=== PATIENT | male | born 1955 | race Caucasian/White ===

== ENCOUNTER 2016-12-02 07:33 | Day surgery (SDC) | payer OTHER ==
[~2016-12-02 07:33] MED LIST: CANA100T; CIPR500T2 PO; LANTUSP SQ; METF850T PO; PROP20TA24 PO; PROT40TA PO; TRAD5TAB PO
[2016-12-02 08:22] VITALS: BP 131/78; PULSE 69; RESP 16; TEMP 97; O2SAT 98
--- NOTE | 2016-12-02 09:38 | RADRPT ---
EXAM DATE/TIME: 12/02/2016 08:11 [place] COMPARISON: No previous studies available for comparison. INDICATIONS : Cirrhosis of the liver with ascites. MEDICAL HISTORY : Arthritis. Gastrointestinal bleed. Diabetes mellitus type 1. Esophageal varicies. SURGICAL HISTORY : Tonsillectomy. Hemorrhoid and esophageal banding. Fistula. Blood transfusions. ENCOUNTER: Initial ACUITY: 1 week PAIN SCORE: 0/10 LOCATION: Abdomen. AREA EVALUATED: Quadrants. FINDINGS: Imaging of the abdomen and pelvis was performed to evaluate for ascites for possible paracentesis. CONCLUSION: There is no significant ascites. Julio Sanderson MD FACR on December 02, 2016 at 9:36 Board Certified Radiologist. This report was verified electronically.
== END 2016-12-02 08:58 | disposition home or self-care (01) ==
LOC: HRAD 07:33 → HRIP 07:33 → HRAD 08:58
PROVIDERS: ATTEND Internal Medicine Gastroenterology
DX: R18.8 Other ascites (principal); K74.60 Unspecified cirrhosis of liver; E10.9 Type 1 diabetes mellitus without complications; M19.90 Unspecified osteoarthritis, unspecified site
CPT/HCPCS: 76705

== ENCOUNTER 2017-07-25 18:28 | Emergency (ER) | payer OTHER ==
[~2017-07-25] VITALS: Ht 182.9 cm; Wt 115.0 kg
[2017-07-25 18:33] VITALS: BP 145/74; PULSE 109; RESP 16; TEMP 98; O2SAT 100
--- NOTE | 2017-07-25 19:01 | PD ---
HPI Chief Complaint: Musculoskeletal Complaint Time Seen by Provider: 18:42 Travel History International Travel<30 days: No Contact w/Intl Traveler<30days: No Traveled to known affect area: No History of Present Illness HPI 61-year-old male complains of right leg pain. Patient states that the pain started yesterday. Patient states the pain is sharp pain and aching pain localized the posterior aspect of the right thigh. Patient denies any pain radiation. Patient denies any injury to the leg. 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 Patient take Coumadin 12 mg daily. Last INR check was 3-1/2 weeks ago and it was 2.3. Patient denies any new medication. Patient denies any recent antibiotic. PFSH Past Medical History Hx Anticoagulant Therapy: Yes (WARFARIN) Arthritis: Yes Autoimmune Disease: No Cancer: No Cardiovascular Problems: No Chemotherapy: No Diabetes: Yes Diminished Hearing: Yes Endocrine: No GERD: No Genitourinary: No Hiatal Hernia: No Immune Disorder: No Musculoskeletal: No Neurologic: No Psychiatric: No Reproductive: No Respiratory: No Radiation Therapy: No Thyroid Disease: No Ulcer: No Past Surgical History Abdominal Surgery: No AICD: No Arteriovenous Shunt: No Cardiac Surgery: No Ear Surgery: No Endocrine Surgery: No Eye Surgery: No Genitourinary Surgery: No Gynecologic Surgery: No Insulin Pump: No Joint Replacement: No Oral Surgery: Yes (esophageal varicies banding) Pacemaker: No Thoracic Surgery: No Other Surgery: Yes (FISTULA RECTUM, UPPER AND LOWER GI'S) Social History Alcohol Use: No Tobacco Use: No Substance Use: No Allergies-Medications (Allergen,Severity, Reaction): Coded Allergies: propofol (Unverified Allergy, Severe, 07/25/17) INFLAMMED PANCREAS cephalexin (Unverified Allergy, Intermediate, NAUSEA AND VOMITING, 07/25/17 ) 04/14/15: PT UNSURE IF THIS IS ACTUALLY ALLERGY Reported Meds & Prescriptions Reported Meds & Active Scripts Active Reported Victoza Inj (Liraglutide Inj) 18 Mg/3 Ml Pen 0.6 Mg SQ DAILY Propranolol (Propranolol HCl) 20 Mg Tab 20 Mg PO Q12HR Lisinopril 2.5 Mg Tab 2.5 Mg PO DAILY Metformin (Metformin HCl) 850 Mg Tab 850 Mg PO TIDPC Lantus Inj (Insulin Glargine) 100 Unit/Ml Inj Warfarin 10 Mg Tab 10 Mg PO DAILY Review of Systems General / Constitutional: No: Fever Eyes: No: Visual changes HENT: No: Headaches Cardiovascular: No: Chest Pain or Discomfort Respiratory: No: Shortness of Breath Gastrointestinal: No: Abdominal Pain Genitourinary: No: Dysuria Musculoskeletal: Positive: Pain Skin: No Rash Neurologic: No: Weakness Psychiatric: No: Depression Endocrine: No: Polydipsia Hematologic/Lymphatic: No: Easy Bruising Physical Exam Narrative GENERAL: Well-nourished, well-developed patient. SKIN: Focused skin assessment warm/dry. HEAD: Normocephalic. EYES: No scleral icterus. No injection or drainage. NECK: Supple, trachea midline. No JVD or lymphadenopathy. CARDIOVASCULAR: Regular rate and rhythm without murmurs, gallops, or rubs. RESPIRATORY: Breath sounds equal bilaterally. No accessory muscle use. GASTROINTESTINAL: Abdomen soft, non-tender, nondistended. MUSCULOSKELETAL: No cyanosis, or edema. BACK: Nontender without obvious deformity. No CVA tenderness. Patient has ecchymosis with diffuse tenderness over posterior aspect lateral aspect of the right thigh and posterior aspect the right lower leg. Full range of motion of the hip knee and ankle joints. No redness no heat noted. Data Data Last Documented VS Vital Signs Date Time Temp Pulse Resp B/P (MAP) Pulse Ox O2 Delivery O2 Flow Rate FiO2 07/25/17 18:33 98.0 109 16 145/74 (97) 100 Orders Orders Complete Blood Count With Diff (07/25/17 18:51) Basic Metabolic Panel (Bmp) (07/25/17 18:51) Prothrombin Time / Inr (Pt) (07/25/17 18:51) Act Partial Throm Time (Ptt) (07/25/17 18:51) Iv Access Insert/Monitor (07/25/17 18:51) Ecg Monitoring (07/25/17 18:51) Oximetry (07/25/17 18:51) Labs Laboratory Tests Test 07/25/17 19:20 White Blood Count 2.6 TH/MM3 Red Blood Count 3.20 MIL/MM3 Hemoglobin 8.6 GM/DL Hematocrit 25.9 % Mean Corpuscular Volume 80.8 FL Mean Corpuscular Hemoglobin 26.8 PG Mean Corpuscular Hemoglobin Concent 33.2 % Red Cell Distribution Width 15.6 % Platelet Count 47 TH/MM3 Mean Platelet Volume 8.2 FL Neutrophils (%) (Auto) 70.4 % Lymphocytes (%) (Auto) 15.2 % Monocytes (%) (Auto) 11.5 % Eosinophils (%) (Auto) 1.6 % Basophils (%) (Auto) 1.3 % Neutrophils # (Auto) 1.9 TH/MM3 Lymphocytes # (Auto) 0.4 TH/MM3 Monocytes # (Auto) 0.3 TH/MM3 Eosinophils # (Auto) 0.0 TH/MM3 Basophils # (Auto) 0.0 TH/MM3 CBC Comment AUTO DIFF Differential Comment AUTO DIFF CONFIRMED Ovalocytes 1+ Prothrombin Time 42.5 SEC Prothromb Time International Ratio 4.2 RATIO Activated Partial Thromboplast Time 49.1 SEC Blood Urea Nitrogen 27 MG/DL Creatinine 0.97 MG/DL Random Glucose 280 MG/DL Calcium Level 8.0 MG/DL Sodium Level 140 MEQ/L Potassium Level 3.8 MEQ/L Chloride Level 110 MEQ/L Carbon Dioxide Level 22.2 MEQ/L Anion Gap 8 MEQ/L Estimat Glomerular Filtration Rate 79 ML/MIN [facility] Medical Decision Making Medical Screen Exam Complete: Yes Emergency Medical Condition: Yes Interpretation(s) 2019 p.m. CBC WBC 2.6. Hemoglobin 8.6 hematocrit 25.9. Platelets 47. 70 neutrophil. Patient usually has hemoglobin around 11-12. On examination today no active bleeding. Patient does have a large area ecchymosis on right thigh and right leg. No obvious other source of bleeding. Differential Diagnosis Differential diagnosis including ecchymosis, Coumadin toxicity. Narrative Course 61-year-old male with pain and ecchymosis right leg. Patient is on Coumadin. INR today 4.2. Patient has a large area of ecchymosis on her right thigh and right leg. No active bleeding at this point. Patient's asymptomatic now except pain to the right thigh. Patient has not taken his warfarin today. Diagnosis Primary Impression: Coumadin toxicity Qualified Codes: T45.511A - Poisoning by anticoagulants, accidental ( unintentional), initial encounter Patient Instructions: General Instructions Additional Instructions: Stop Coumadin. Hydrocodone for pain. Return in a.m. for recheck for CBC and INR. Return immediately if chest pain shortness breath dizziness or increasing pain and swelling on the right leg. Med/Other Pt SpecificInfo: Prescription(s) given, Med Stopped Scripts Tramadol (Ultram) 50 Mg Tab 50 MG PO Q6H Y for PAIN, #20 TAB 0 Refills Prov: Fernando Tai MD 07/25/17 Disposition: 01 DISCHARGE HOME Condition: Stable Fernando Tai MD Jul 25, 2017 19:01
[2017-07-25] MEDS ORDERED: METF850T PO (19:06)
[2017-07-25] MEDS ORDERED: LANTUS2P SQ (19:06)
[2017-07-25] MEDS ORDERED: PROP20TA3 PO (19:06)
[2017-07-25] MEDS ORDERED: WARF-22 PO (19:06)
[2017-07-25] MEDS ORDERED: LISI2.5T3 PO (19:06)
[2017-07-25] MEDS ORDERED: VICT18IN SQ (19:06)
[2017-07-25 19:31] LABS: AUTOMATED NEUTROPHIL # 1.9 TH/MM3 (1.8-7.7); BASOPHIL % 1.3 % (0.0-2.0); EOSINOPHIL % 1.6 % (0.0-4.0); HEMATOCRIT 25.9 % (39.0-51.0); HEMOGLOBIN 8.6 GM/DL (13.0-17.0); LYMPH % 15.2 % (9.0-44.0); LYMPHOCYTE # 0.4 TH/MM3 (1.0-4.8); MEAN CELL VOLUME 80.8 FL (80.0-100.0); MEAN CORPUSCULAR HEMOGLOBIN 26.8 PG (27.0-34.0); MEAN CORPUSCULAR HGB CONC 33.2 % (32.0-36.0); MEAN PLATELET VOLUME 8.2 FL (7.0-11.0); MONO % 11.5 % (0.0-8.0); MONOCYTE # 0.3 TH/MM3 (0-0.9); NEUT % 70.4 % (16.0-70.0); PLATELET COUNT 47 TH/MM3 (150-450); RED CELL DISTRIBUTION WIDTH 15.6 % (11.6-17.2); WHITE BLOOD COUNT 2.6 TH/MM3 (4.0-11.0)
[2017-07-25 19:42] LABS: BICARBONATE 22.2 MEQ/L (21.0-32.0)
[2017-07-25 19:43] LABS: INTERNATIONAL NORMALIZED RATIO 4.2 RATIO; PROTHROMBIN TIME - PATIENT 42.5 SEC (9.8-11.6)
[2017-07-25 19:46] LABS: CREATININE 0.97 MG/DL (0.60-1.30)
[2017-07-25 20:15] LABS: OVALOCYTES 1+ (NORMAL)
[2017-07-25] MEDS ORDERED: TRAM50 PO (20:37)
[2017-07-25] MEDS ORDERED: ACETAMINOPHEN/HYDROcodone 325 MG/5 MG TAB PO ONE (20:45)
[2017-07-25 21:04] VITALS: BP 154/86
== END 2017-07-25 21:16 | disposition home or self-care (01) ==
LOC: PHED 18:28
DX: T45.511A Poisoning by anticoagulants, accidental (unintentional), initial encounter (principal); R23.3 Spontaneous ecchymoses; E11.9 Type 2 diabetes mellitus without complications; Z79.01 Long term (current) use of anticoagulants; Z79.4 Long term (current) use of insulin; Z86.718 Personal history of other venous thrombosis and embolism; Z87.39 Personal history of other diseases of the musculoskeletal system and connective tissue
CPT/HCPCS: 80048; 85025; 85610; 85730; 99283

== ENCOUNTER 2017-07-26 11:33 | Inpatient (IN) | payer OTHER ==
[~2017-07-26] VITALS: Ht 182.9 cm; Wt 114.2 kg
[~2017-07-26 11:33] MED LIST changes: -CANA100T; -CIPR500T2 PO; +LANTUS2P SQ; -LANTUSP SQ; +LISI2.5T3 PO; -PROP20TA24 PO; +PROP20TA3 PO; -PROT40TA PO; -TRAD5TAB PO; +TRAM50 PO; +VICT18IN SQ; +WARF-22 PO
[2017-07-26 11:35] VITALS: BP 144/71; PULSE 110; RESP 16; TEMP 97.7; O2SAT 100
--- NOTE | 2017-07-26 11:55 | PD ---
HPI Chief Complaint: Abnormal Results Time Seen by Provider: 11:45 Travel History International Travel<30 days: No Contact w/Intl Traveler<30days: No Traveled to known affect area: No History of Present Illness HPI 62-year-old male presents to the emergency department for recheck of his CBC and INR. Patient was seen yesterday here and was instructed to return today. Patient is complaining of right leg pain with ecchymosis to the right posterior thigh and knee. Patient is on Coumadin for history of splenic vein DVT. Patient has not taken Coumadin since being seen here yesterday. He denies any new or worsening symptoms. No exacerbating or alleviating factors. Moderate severity. Patient also states that he has been having dark and tarry stools for a week with history of needing blood transfusion. PFSH Past Medical History Hx Anticoagulant Therapy: Yes (WARFARIN) Arthritis: Yes Autoimmune Disease: No Cancer: No Cardiovascular Problems: Yes (BLOOD CLOTS) Chemotherapy: No Diabetes: Yes Patient Takes Glucophage: Yes (07/25/17 0900) Diminished Hearing: Yes Endocrine: No Gastrointestinal Disorders: Yes (hemrhoid and esophageal banding, blood in stool) GERD: No Genitourinary: No Hiatal Hernia: No Immune Disorder: No Implanted Vascular Access Dvce: No Musculoskeletal: No Neurologic: No Psychiatric: No Reproductive: No Respiratory: No Radiation Therapy: No Thyroid Disease: No Ulcer: No Tetanus Vaccination: < 5 Years Influenza Vaccination: No Past Surgical History Abdominal Surgery: No AICD: No Arteriovenous Shunt: No Cardiac Surgery: No Ear Surgery: No Endocrine Surgery: No Eye Surgery: No Genitourinary Surgery: No Gynecologic Surgery: No Insulin Pump: No Joint Replacement: No Neurologic Surgery: No Oral Surgery: Yes (esophageal varicies banding) Pacemaker: No Thoracic Surgery: No Tonsillectomy: Yes Other Surgery: Yes (fistula, hemrhoid banding) Social History Alcohol Use: No Tobacco Use: No Substance Use: No Allergies-Medications (Allergen,Severity, Reaction): Coded Allergies: propofol (Unverified Allergy, Severe, 07/26/17) INFLAMMED PANCREAS cephalexin (Unverified Allergy, Intermediate, NAUSEA AND VOMITING, 07/26/17 ) 04/14/15: PT UNSURE IF THIS IS ACTUALLY ALLERGY Reported Meds & Prescriptions Reported Meds & Active Scripts Active Ultram (Tramadol HCl) 50 Mg Tab 50 Mg PO Q6H PRN Reported Victoza Inj (Liraglutide Inj) 18 Mg/3 Ml Pen 0.6 Mg SQ DAILY Propranolol (Propranolol HCl) 20 Mg Tab 20 Mg PO Q12HR Lisinopril 2.5 Mg Tab 2.5 Mg PO DAILY Metformin (Metformin HCl) 850 Mg Tab 850 Mg PO TIDPC Lantus Inj (Insulin Glargine) 100 Unit/Ml Inj Warfarin 10 Mg Tab 10 Mg PO DAILY Review of Systems Except as stated in HPI: all other systems reviewed are Neg Physical Exam Narrative GENERAL: Well-nourished, well-developed male patient, afebrile. SKIN: Focused skin assessment warm/dry. Patient has large ecchymosis noted to the posterior thigh and posterior knee. Tissues are soft, no evidence of compartment syndrome. HEAD: Normocephalic. Atraumatic. EYES: No scleral icterus. No injection or drainage. NECK: Supple, trachea midline. No JVD or lymphadenopathy. CARDIOVASCULAR: Regular rate and rhythm without murmurs, gallops, or rubs. Right pedal pulse is 2+. RESPIRATORY: Breath sounds equal bilaterally. No accessory muscle use. Lungs sounds are clear to auscultation. GASTROINTESTINAL: Abdomen soft, non-tender, nondistended. MUSCULOSKELETAL: No cyanosis, or edema. BACK: Nontender without obvious deformity. No CVA tenderness. RECTAL EXAM: No masses or tenderness, stool is dark and tarry. Hemoccult is positive. This exam was done with RN at bedside. Data Data Last Documented VS Vital Signs Date Time Temp Pulse Resp B/P (MAP) Pulse Ox O2 Delivery O2 Flow Rate FiO2 07/26/17 11:35 97.7 110 16 144/71 (95) 100 Orders Orders Complete Blood Count With Diff (07/26/17 11:52) Prothrombin Time / Inr (Pt) (07/26/17 11:52) Act Partial Throm Time (Ptt) (07/26/17 11:52) Basic Metabolic Panel (Bmp) (07/26/17 12:01) Type And Screen (07/26/17 12:01) Sodium Chlor 0.9% 1000 Ml Inj (Ns 1000 M (07/26/17 13:15) Pantoprazole Inj (Protonix Inj) (07/26/17 13:15) Admit Order (Ed Use Only) (07/26/17 13:33) Labs Laboratory Tests Test 07/26/17 12:00 White Blood Count 3.7 TH/MM3 Red Blood Count 3.07 MIL/MM3 Hemoglobin 8.5 GM/DL Hematocrit 25.1 % Mean Corpuscular Volume 81.7 FL Mean Corpuscular Hemoglobin 27.7 PG Mean Corpuscular Hemoglobin Concent 33.8 % Red Cell Distribution Width 16.7 % Platelet Count 60 TH/MM3 Mean Platelet Volume 8.3 FL Neutrophils (%) (Auto) 80.6 % Lymphocytes (%) (Auto) 12.0 % Monocytes (%) (Auto) 6.4 % Eosinophils (%) (Auto) 0.8 % Basophils (%) (Auto) 0.2 % Neutrophils # (Auto) 3.1 TH/MM3 Lymphocytes # (Auto) 0.4 TH/MM3 Monocytes # (Auto) 0.2 TH/MM3 Eosinophils # (Auto) 0.0 TH/MM3 Basophils # (Auto) 0.0 TH/MM3 CBC Comment DIFF FINAL Differential Comment Prothrombin Time 43.5 SEC Prothromb Time International Ratio 4.3 RATIO Activated Partial Thromboplast Time 53.7 SEC Blood Urea Nitrogen 30 MG/DL Creatinine 0.93 MG/DL Random Glucose 242 MG/DL Calcium Level 8.2 MG/DL Sodium Level 138 MEQ/L Potassium Level 3.8 MEQ/L Chloride Level 107 MEQ/L Carbon Dioxide Level 22.0 MEQ/L Anion Gap 9 MEQ/L Estimat Glomerular Filtration Rate 82 ML/MIN [facility] Medical Decision Making Medical Screen Exam Complete: Yes Emergency Medical Condition: Yes Medical Record Reviewed: Yes Differential Diagnosis Elevated INR versus therapeutic INR versus medical clearance Narrative Course 62-year-old male presents to the emergency department for recheck of his CBC and INR. Patient was seen yesterday and instructed to return. My attending physician, Dr. Tai, was the physician that saw him yesterday. He reevaluated the patient as well. Patient is also complaining of dark and tarry stools for one week. Hemoccult is grossly positive. CBC, BMP, PTT, PT/INR, type and screen are ordered and pending. Dr. Tai resumed care and disposition of patient. HemaPrompt Point of Care Internal Pos. & Neg. Controls: Passed Fecal Specimen Occult Blood: Positive Nohemi Louis Jul 26, 2017 11:55
--- NOTE | 2017-07-26 12:07 | PD ---
Physical Exam Narrative Patient was seen by me and my assistant food service manager. Patient has history of GI bleed that required transfusions in the past. Patient has been follow-up by Dr. Tate and [facility]. Patient states that he was put on iron supplement in the past. Patient states that iron supplement elevated blood sugar in the past. Patient noticed black tarry stool for the past week. Patient denies abdominal pain. Patient denies any fever chills. Patient denies any headache. Patient denies any chest pain or shortness of breath. Patient denies any dizziness. Data Data Last Documented VS Vital Signs Date Time Temp Pulse Resp B/P (MAP) Pulse Ox O2 Delivery O2 Flow Rate FiO2 07/26/17 11:35 97.7 110 16 144/71 (95) 100 Orders Orders Complete Blood Count With Diff (07/26/17 11:52) Prothrombin Time / Inr (Pt) (07/26/17 11:52) Act Partial Throm Time (Ptt) (07/26/17 11:52) Basic Metabolic Panel (Bmp) (07/26/17 12:01) Type And Screen (07/26/17 12:01) Sodium Chlor 0.9% 1000 Ml Inj (Ns 1000 M (07/26/17 13:15) Pantoprazole Inj (Protonix Inj) (07/26/17 13:15) Labs Laboratory Tests Test 07/26/17 12:00 White Blood Count 3.7 TH/MM3 Red Blood Count 3.07 MIL/MM3 Hemoglobin 8.5 GM/DL Hematocrit 25.1 % Mean Corpuscular Volume 81.7 FL Mean Corpuscular Hemoglobin 27.7 PG Mean Corpuscular Hemoglobin Concent 33.8 % Red Cell Distribution Width 16.7 % Platelet Count 60 TH/MM3 Mean Platelet Volume 8.3 FL Neutrophils (%) (Auto) 80.6 % Lymphocytes (%) (Auto) 12.0 % Monocytes (%) (Auto) 6.4 % Eosinophils (%) (Auto) 0.8 % Basophils (%) (Auto) 0.2 % Neutrophils # (Auto) 3.1 TH/MM3 Lymphocytes # (Auto) 0.4 TH/MM3 Monocytes # (Auto) 0.2 TH/MM3 Eosinophils # (Auto) 0.0 TH/MM3 Basophils # (Auto) 0.0 TH/MM3 CBC Comment DIFF FINAL Differential Comment Prothrombin Time 43.5 SEC Prothromb Time International Ratio 4.3 RATIO Activated Partial Thromboplast Time 53.7 SEC Blood Urea Nitrogen 30 MG/DL Creatinine 0.93 MG/DL Random Glucose 242 MG/DL Calcium Level 8.2 MG/DL Sodium Level 138 MEQ/L Potassium Level 3.8 MEQ/L Chloride Level 107 MEQ/L Carbon Dioxide Level 22.0 MEQ/L Anion Gap 9 MEQ/L Estimat Glomerular Filtration Rate 82 ML/MIN MDM Supervised Visit with SG: Yes Narrative Course Normal saline solution 100 cc an hour. Protonix 40 mg IV. Spoke with facing machine operator on-call, Dr. Aragon. Advised admission with GI consultation. Diagnosis Primary Impression: GIB (gastrointestinal bleeding) Qualified Codes: K92.2 - Gastrointestinal hemorrhage, unspecified Additional Impressions: Hypercoagulable state Symptomatic anemia Admitting Information Admitting Physician Requests: Fernando Talbot MD Jul 26, 2017 12:07
[2017-07-26 12:24] LABS: AUTOMATED NEUTROPHIL # 3.1 TH/MM3 (1.8-7.7); BASOPHIL % 0.2 % (0.0-2.0); EOSINOPHIL % 0.8 % (0.0-4.0); HEMATOCRIT 25.1 % (39.0-51.0); HEMOGLOBIN 8.5 GM/DL (13.0-17.0); LYMPHOCYTE # 0.4 TH/MM3 (1.0-4.8); MEAN CELL VOLUME 81.7 FL (80.0-100.0); MEAN CORPUSCULAR HEMOGLOBIN 27.7 PG (27.0-34.0); MEAN CORPUSCULAR HGB CONC 33.8 % (32.0-36.0); MEAN PLATELET VOLUME 8.3 FL (7.0-11.0); MONO % 6.4 % (0.0-8.0); MONOCYTE # 0.2 TH/MM3 (0-0.9); NEUT % 80.6 % (16.0-70.0); RED BLOOD COUNT 3.07 MIL/MM3 (4.50-5.90); RED CELL DISTRIBUTION WIDTH 16.7 % (11.6-17.2); WHITE BLOOD COUNT 3.7 TH/MM3 (4.0-11.0)
[2017-07-26 12:25] LABS: PLATELET COUNT 60 TH/MM3 (150-450)
[2017-07-26 12:31] LABS: CALCIUM 8.2 MG/DL (8.5-10.1)
[2017-07-26 12:34] LABS: INTERNATIONAL NORMALIZED RATIO 4.3 RATIO; PROTHROMBIN TIME - PATIENT 43.5 SEC (9.8-11.6)
[2017-07-26 12:35] LABS: CREATININE 0.93 MG/DL (0.60-1.30)
[2017-07-26] MEDS ORDERED: SODIUM CHLOR 0.9% 1000 ML INJ 1,000 ML IV SCH (13:15)
[2017-07-26] MEDS ORDERED: PANTOPRAZOLE SODIUM 40 MG VIAL IV PUSH ONE (13:15)
[2017-07-26] MEDS ORDERED: PHYTONADIONE 10 MG/ML VIAL SQ ONE (13:45)
[2017-07-26 14:00] VITALS: BP 115/72; PULSE 112; RESP 18; O2SAT 100
[2017-07-26] MEDS: SODIUM CHLOR 0.9% 1000 ML INJ 1,000 ML IV SCH ×2 (14:00→23:47)
[2017-07-26] MEDS: PANTOPRAZOLE SODIUM 40 MG VIAL IV PUSH SCH (14:00)
[2017-07-26] MEDS: traMADol HCL 50 MG TAB PO PRN ×2 (15:58→22:06)
[2017-07-26] MEDS: INSULIN ASPART SUPPLEMENTAL SCALE SQ SCH ×2 (17:15→22:05)
--- NOTE | 2017-07-26 18:08 | HHI.HP ---
HPI Service [facility] Hospitalists Primary Care Physician Alpa Alberto MD Admission Diagnosis GI bleed. Anemia. Hypercoagulation. Chief Complaint: Tarry stools, fatigue, elevated INR Travel History International Travel<30 Days: No Contact w/Intl Traveler <30 Da: No Traveled to Known Affected Are: No History of Present Illness 62-year-old male with history of AVMs, cirrhosis, esophageal varices, diabetes with prior GI bleeds that required transfusions presents to ER for follow-up on visit from yesterday which revealed supratherapeutic INR and hemoglobin around 8.5. Patient reports that he has had outpatient IV iron supplementation by his local senior buyer due to his chronic anemia but over the last 10 days or so has noted dark tarry stools which is unusual for him. He notes that he has had these before and has required EGD with treatment of variceals and AVMs. Patient has been follow-up by Dr. Tate locally and [facility] as well. Patient states that IV iron supplement elevated blood sugar in the past. He has avoided nonsteroidals and has not drank any alcohol in 35 years. He uses Tylenol arthritis for his joint pains but no more than 3 pills per day. Patient denies abdominal pain. Patient denies any fever chills. Patient denies any headache or nausea vomiting. Patient denies any chest pain or shortness of breath. Patient denies any dizziness. Denies any new medications and reports that he has been taking his anticoagulant and other meds as directed. It is noted that he has lost 15 pounds over the last month or so intentionally by changing his dietary intake. His outpatient INR on July 02 was 1.9 and prior to that was 2.2 on June 23. GI was contacted from the ER per discussion with the ER provider and they requested the patient be admitted for at least observation given that he was still having dark tarry stools, supratherapeutic INR and a significant history of GI bleeds as well as chronic thrombocytopenia. Review of Systems Constitutional: COMPLAINS OF: Fatigue, Dizziness Endocrine: DENIES: Heat/cold intolerance, Polydipsia, Polyuria, Polyphagia Eyes: DENIES: Blurred vision, Diplopia, Eye inflammation, Eye pain, Vision loss , Photosensitivity, Double Vision Ears, nose, mouth, throat: DENIES: Tinnitus, Hearing loss, Vertigo, Nasal discharge, Oral lesions, Throat pain, Hoarseness, Ear Pain, Running Nose, Epistaxis, Sinus Pain, Toothache, Odynophagia Respiratory: COMPLAINS OF: Shortness of breath, DENIES: Apneas, Cough, Snoring , Wheezing, Hemoptysis, Sputum production Cardiovascular: COMPLAINS OF: Dyspnea on Exertion, DENIES: Chest pain, Palpitations, Syncope, PND, Lower Extremity Edema, Orthopnea, Claudication Gastrointestinal: COMPLAINS OF: Black stools, GERD, DENIES: Abdominal pain, Bloody stools, BRB per rectum, Constipation, Diarrhea, Nausea, Reflux, Vomiting , Difficulty Swallowing, Anorexia, See HPI Musculoskeletal: COMPLAINS OF: Joint pain, Back pain Integumentary: DENIES: Abnormal pigmentation, Nail changes, Pruritus, Rash Hematologic/lymphatic: COMPLAINS OF: Bruising Immunologic/allergic: DENIES: Eczema, Urticaria Neurologic: COMPLAINS OF: Tremor, DENIES: Abnormal gait, Headache, Localized weakness, Paresthesias, Seizures, Speech Problems, Poor Balance Psychiatric: DENIES: Anxiety, Confusion, Mood changes, Depression, Hallucinations, Agitation, Suicidal Ideation, Homicidal Ideation, Delusions, History of Bipolar, History of Schizophrenia Past Family Social History Past Medical History 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 The March 2017 EGD revealed large greater than 5 mm esophageal varices which were banded, scarring from previous banding procedures, portal hypertensive gastropathy changes, gastric antral vascular ectasia without bleeding. -Multiple colonoscopies with most recent done February 2016 which revealed diverticulosis and medium internal hemorrhoids. -Tonsillectomy and adenoidectomy Reported Medications Active Ultram (Tramadol HCl) 50 Mg Tab 50 Mg PO Q6H PRN Victoza Inj (Liraglutide Inj) 18 Mg/3 Ml Pen 1.8 Mg SQ DAILY Propranolol (Propranolol HCl) 20 Mg p.o. daily Lisinopril 5 Mg PO DAILY Metformin (Metformin HCl) 850 Mg Tab 850 Mg PO TIDPC Lantus Inj (Insulin Glargine) 100 Unit/Ml Inj 60 units subQ twice a day Warfarin 12 Mg PO DAILY Spironolactone 50 mg daily Omeprazole 20 mg daily Furosemide 20 mg 1 tablet daily B12 100 mcg p.o. daily Vitamin D 2000 units daily Ventolin inhaler 2 puffs 4 times daily as needed cough or shortness of breath Allergies: Coded Allergies: propofol (Unverified Allergy, Severe, 07/26/17) INFLAMMED PANCREAS cephalexin (Unverified Allergy, Intermediate, NAUSEA AND VOMITING, 07/26/17 ) 04/14/15: PT UNSURE IF THIS IS ACTUALLY ALLERGY Family History Mother had poorly controlled diabetes and in her 80s Father in his 80s, questionable etiology Social History Lives with his , patient was born and raised locally No tobacco in 20 years but prior to that smoked about 1-1/2 packs per day for 20 years No alcohol in 35 years, but prior to that drank heavily on the weekends only Denies illicit drug use Works as a dry wall installations mechanic locally Physical Exam Vital Signs Vital Signs Date Time Temp Pulse Resp B/P (MAP) Pulse Ox O2 Delivery O2 Flow Rate FiO2 07/26/17 16:58 18 07/26/17 14:50 07/26/17 14:00 112 18 115/72 (86) 100 Room Air 07/26/17 11:35 97.7 110 16 144/71 (95) 100 Physical Exam GENERAL: This is a well-nourished, well-developed patient, in no apparent distress. Alert and oriented. Pleasant. SKIN: A few ecchymotic lesions on the forearms. Xerotic. HEAD: Atraumatic. Normocephalic. No temporal or scalp tenderness. EYES: Pupils equal round and reactive. Extraocular motions intact. No scleral icterus. No injection or drainage. ENT: Nose without bleeding, purulent drainage or septal hematoma. Throat without erythema, tonsillar hypertrophy or exudate. Uvula midline. Airway patent. NECK: Trachea midline. No JVD or lymphadenopathy. Supple, nontender, no meningeal signs. CARDIOVASCULAR: Regular rate and rhythm without murmurs, gallops, or rubs. RESPIRATORY: Clear to auscultation. Breath sounds equal bilaterally. No wheezes , rales, or rhonchi. GASTROINTESTINAL: Abdomen soft, non-tender, mildly distended. No hepato- splenomegaly, or palpable masses. No guarding. Bowel sounds normal. MUSCULOSKELETAL: Extremities without clubbing, cyanosis. 1+ edema around the ankles. No joint tenderness, effusion, or edema noted. No calf tenderness. NEUROLOGICAL: Awake and alert. Cranial nerves II through XII intact. Motor and sensory grossly within normal limits. Five out of 5 muscle strength in all muscle groups. Normal speech. Laboratory Laboratory Tests Test 07/26/17 12:00 White Blood Count 3.7 Red Blood Count 3.07 Hemoglobin 8.5 Hematocrit 25.1 Mean Corpuscular Volume 81.7 Mean Corpuscular Hemoglobin 27.7 Mean Corpuscular Hemoglobin Concent 33.8 Red Cell Distribution Width 16.7 Platelet Count 60 Mean Platelet Volume 8.3 Neutrophils (%) (Auto) 80.6 Lymphocytes (%) (Auto) 12.0 Monocytes (%) (Auto) 6.4 Eosinophils (%) (Auto) 0.8 Basophils (%) (Auto) 0.2 Neutrophils # (Auto) 3.1 Lymphocytes # (Auto) 0.4 Monocytes # (Auto) 0.2 Eosinophils # (Auto) 0.0 Basophils # (Auto) 0.0 CBC Comment DIFF FINAL Differential Comment Prothrombin Time 43.5 Prothromb Time International Ratio 4.3 Activated Partial Thromboplast Time 53.7 Blood Urea Nitrogen 30 Creatinine 0.93 Random Glucose 242 Calcium Level 8.2 Sodium Level 138 Potassium Level 3.8 Chloride Level 107 Carbon Dioxide Level 22.0 Anion Gap 9 Estimat Glomerular Filtration Rate 82 Result Diagram: 07/26/17 1200 07/26/17 1200 Caprini VTE Risk Assessment Caprini VTE Risk Assessment: Mod/High Risk (score >= 2) VTE Pharm Contraindication: Coagulopathy,INR elevated Caprini Risk Assessment Model Point Value = 1 Point Value = 2 Point Value = 3 Point Value = 5 Age 41-60 Minor surgery BMI > 25 kg/m2 Swollen legs Varicose veins or History of unexplained or recurrent spontaneous Oral contraceptives or hormone replacement Sepsis (< 1 month) Serious lung disease, including pneumonia (< 1 month) Abnormal pulmonary function Acute myocardial infarction Congestive heart failure (< 1 month) History of inflammatory bowel disease Medical patient at bed rest Age 61-74 Arthroscopic surgery Major open surgery (> 45 min) Laparoscopic surgery (> 45 min) Malignancy Confined to bed (> 72 hours) Immobilizing plaster cast Central venous access Age >= 75 History of VTE Family history of VTE Factor V Leiden Prothrombin [id number] Lupus anticoagulant Anticardiolipin antibodies Elevated serum homocysteine Heparin-induced thrombocytopenia Other congenital or acquired thrombophilia Stroke (< 1 month) Elective arthroplasty Hip, pelvis, or leg fracture Acute spinal cord injury (< 1 month) Prophylaxis Regimen Total Risk Factor Score Risk Level Prophylaxis Regimen 0-1 Low Early ambulation 2 Moderate Order ONE of the following: *Sequential Compression Device (SCD) *Heparin 5000 units SQ BID 3-4 Higher Order ONE of the following medications: *Heparin 5000 units SQ TID *Enoxaparin/Lovenox 40 mg SQ daily (WT < 150 kg, CrCl > 30 mL/min) *Enoxaparin/Lovenox 30 mg SQ daily (WT < 150 kg, CrCl > 10-29 mL/min) *Enoxaparin/Lovenox 30 mg SQ BID (WT < 150 kg, CrCl > 30 mL/min) AND/OR *Sequential Compression Device (SCD) 5 or more Highest Order ONE of the following medications: *Heparin 5000 units SQ TID (Preferred with Epidurals) *Enoxaparin/Lovenox 40 mg SQ daily (WT < 150 kg, CrCl > 30 mL/min) *Enoxaparin/Lovenox 30 mg SQ daily (WT < 150 kg, CrCl > 10-29 mL/min) *Enoxaparin/Lovenox 30 mg SQ BID (WT < 150 kg, CrCl > 30 mL/min) AND *Sequential Compression Device (SCD) Assessment and Plan Problem List: (1) GIB (gastrointestinal bleeding) ICD Codes: K92.2 - Gastrointestinal hemorrhage, unspecified Status: Acute Plan: Recurrent issue in patient with known AVMs and varices. We will have GI see patient. Monitor hemoglobin and vital signs. Hemoglobin is stable with previous evaluation. He has been given vitamin K which hopefully will help but may not be as effective given his liver status. Patient could conceivably be discharged home tomorrow for outpatient workup if vital signs and hemoglobin remained stable. GI requested patient be placed in hospital at least overnight. (2) Symptomatic anemia ICD Codes: D64.9 - Anemia, unspecified Status: Acute Plan: We will continue to monitor. Vitals are stable. Hemoglobin has remained stable. 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 (3) Coagulopathy ICD Codes: D68.9 - Coagulation defect, unspecified Status: Acute Plan: Likely in part iatrogenic as well as due to his liver insufficiency. Has been given vitamin K as above. Will monitor INR. (4) Diabetes mellitus type 2, insulin dependent ICD Codes: E11.9 - Type 2 diabetes mellitus without complications; Z79.4 - [facility] (current) use of insulin Status: Chronic Plan: Continue insulin but will use lower basal dose. Use sliding scale insulin. Sugars have been improving with his intentional weight loss. (5) HTN (hypertension), benign ICD Codes: I10 - Essential (primary) hypertension Status: Chronic Plan: Good control. Continue medication as blood pressure will allow. 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 Continue outpatient management. Code Status Full Discussed Condition With Patient and ER provider. Problem Qualifiers (1) GIB (gastrointestinal bleeding): Qualified Codes: K92.2 - Gastrointestinal hemorrhage, unspecified Mark Santos MD PhD Jul 26, 2017 18:08
[2017-07-26 18:57] VITALS: BP 133/72; PULSE 109; RESP 18; TEMP 98; O2SAT 97
[2017-07-26 20:00] VITALS: BP 120/69; PULSE 101; RESP 20; TEMP 98.2; O2SAT 96
[2017-07-26] MEDS: INSULIN DETEMIR 100 UNITS/ML VIAL SQ SCH (22:05)
[2017-07-26 22:58] VITALS: PULSE 96
[2017-07-27] VITALS (17 sets, daily range): BP systolic 95–150; BP diastolic 55–94; PULSE 87–95; RESP 16–20; TEMP 96.2–99.1; O2SAT 96–99
[2017-07-27] MEDS: traMADol HCL 50 MG TAB PO PRN ×3 (05:48→18:13)
[2017-07-27 06:57] LABS: MEAN CORPUSCULAR HEMOGLOBIN 27.4 PG (27.0-34.0); MEAN CORPUSCULAR HGB CONC 33.4 % (32.0-36.0); MEAN PLATELET VOLUME 7.6 FL (7.0-11.0); PLATELET COUNT 49 TH/MM3 (150-450); RED BLOOD COUNT 2.34 MIL/MM3 (4.50-5.90); RED CELL DISTRIBUTION WIDTH 16.5 % (11.6-17.2); WHITE BLOOD COUNT 2.2 TH/MM3 (4.0-11.0)
[2017-07-27 07:13] LABS: INTERNATIONAL NORMALIZED RATIO 3.1 RATIO; PROTHROMBIN TIME - PATIENT 31.4 SEC (9.8-11.6)
[2017-07-27 07:25] LABS: HEMOGLOBIN 6.4 GM/DL (13.0-17.0)
[2017-07-27 07:26] LABS: HEMATOCRIT 19.2 % (39.0-51.0)
[2017-07-27] MEDS: INSULIN ASPART SUPPLEMENTAL SCALE SQ SCH ×4 (08:00→21:58)
--- NOTE | 2017-07-27 08:27 | HHI.PR ---
Subjective Remarks Patient report he overall feels well. Is ambulated to the restroom on several occasions. Still becomes fatigued quite easily. Denies chest pain or shortness of breath at rest, but does become a little dyspneic with prolonged exertion. He is agreeable to receiving PRBCs. Has had no bowel movement since yesterday morning. No more tarry stools. Objective Vitals Vital Signs Date Time Temp Pulse Resp B/P (MAP) Pulse Ox O2 Delivery O2 Flow Rate FiO2 07/27/17 04:00 97.6 93 20 117/55 (75) 97 07/27/17 00:00 96.2 90 20 133/94 (107) 98 07/26/17 22:58 96 07/26/17 20:00 98.2 101 20 120/69 (86) 96 07/26/17 18:57 98.0 109 18 133/72 (92) 97 07/26/17 18:57 98.0 109 18 133/72 (92) 97 07/26/17 16:58 18 07/26/17 14:50 07/26/17 14:00 112 18 115/72 (86) 100 Room Air 07/26/17 11:35 97.7 110 16 144/71 (95) 100 GENERAL: No acute distress, alert and oriented. Pleasant. SKIN: Warm and dry. Right lateral and posterior thigh with areas of ecchymosis , left index finger with subungual hematoma. HEAD: Normocephalic. EYES: No scleral icterus. No injection or drainage. NECK: Supple, trachea midline. No JVD or lymphadenopathy. CARDIOVASCULAR: Regular rate and rhythm without murmurs, gallops, or rubs. RESPIRATORY: Breath sounds equal bilaterally. No accessory muscle use. GASTROINTESTINAL: Abdomen soft, non-tender, nondistended. Bowel sounds normal. MUSCULOSKELETAL: No cyanosis, or edema. Moves all extremities well. Right thigh ecchymosis is noted, no evidence of compartment syndrome. BACK: No CVA tenderness. Result Diagram: 07/27/17 0633 07/26/17 1200 Urinary Catheter: No Vascular Central Line Catheter: No A/P Problem List: (1) GIB (gastrointestinal bleeding) ICD Codes: K92.2 - Gastrointestinal hemorrhage, unspecified Status: Acute Plan: Recurrent issue in patient with known AVMs and varices. We will have GI see patient. Monitor hemoglobin and vital signs. Hemoglobin dropped overnight. He has been given vitamin K which helped a bit with INR. We will provide 2 unit FFP and 2 units PRBCs. Patient still appears stable (2) Symptomatic anemia ICD Codes: D64.9 - Anemia, unspecified Status: Acute Plan: We will continue to monitor. Vitals are stable. Hemoglobin dropped a bit overnight. Could be somewhat delusional. 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 Provide packed red cells and 1 unit FFP as noted. (3) Coagulopathy ICD Codes: D68.9 - Coagulation defect, unspecified Status: Acute Plan: Likely in part iatrogenic as well as due to his liver insufficiency. Has been given vitamin K as above. INR improved somewhat but only slowly improving likely associated with liver dysfunction. Provide FFP. (4) Diabetes mellitus type 2, insulin dependent ICD Codes: E11.9 - Type 2 diabetes mellitus without complications; Z79.4 - pain management nurse practitioner (current) use of insulin Status: Chronic Plan: Continue insulin but will use lower basal dose. Use sliding scale insulin. Sugars have been improving with his intentional weight loss. (5) HTN (hypertension), benign ICD Codes: I10 - Essential (primary) hypertension Status: Chronic Plan: Good control. Continue medication as blood pressure will allow. 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 Continue outpatient management. Discharge Planning We will have GI see patient. Hopefully discharge in next 1-2 days depending on his progress and stability of blood counts. Problem Qualifiers (1) GIB (gastrointestinal bleeding): Qualified Codes: K92.2 - Gastrointestinal hemorrhage, unspecified Mark Santos MD PhD Jul 27, 2017 08:27
[2017-07-27] MEDS: SODIUM CHLOR 0.9% 1000 ML INJ 1,000 ML IV SCH ×2 (08:56→18:45)
[2017-07-27] MEDS: INSULIN DETEMIR 100 UNITS/ML VIAL SQ SCH ×2 (08:56→21:57)
[2017-07-27] MEDS ORDERED: VICTOZA 18 MG/3 ML SQ SCH (09:00)
--- NOTE | 2017-07-27 10:42 | MB ---
cc: Alphonse Aragon MD DATE OF CONSULT: REASON FOR CONSULTATION: GI bleeding. HISTORY OF PRESENT ILLNESS: This is a 62-year-old male patient known to our service from previous evaluation. Known history of AV malformation of the colon and small bowel, history of liver cirrhosis complicated by esophageal varices. He is known also to have diabetes mellitus. The patient has history of recurrent GI bleeding, was evaluated by our service and at [facility] in the previous admissions. He had varices banded at [facility] 6 months ago and never went for another repeat endoscopic evaluation after that. He had a colonoscopy done by our service that showed multiple AVM and they were cauterized by argon plasma coagulation successfully. The patient this time presented with large amount of frequent bowel movements described as black tarry in color and was seen in the emergency room where he was found to have melanotic stool by rectal examination, but hemodynamically stable. His labs showed hemoglobin to be low and supratherapeutic INR, so he was admitted for further evaluation. At the current time, the patient is asymptomatic from other point of view. No abdominal pain, nausea, vomiting, hematemesis. No black stools since admission. Denies any rectal pain or perianal discomfort. No history of change in appetite, although he complains of decreasing in weight. REVIEW OF SYSTEMS: All 14 points negative for system review other than the ones mentioned in the history of present illness. PAST MEDICAL HISTORY: AV malformation of the bowel, cirrhosis complicated secondary to LASSITER, complicated by ascites and esophageal varices, history of osteoarthritis, gastroesophageal reflux disease, chronic iron deficiency anemia, obstructive sleep apnea, obesity, pancytopenia, portal hypertension, gastropathy, splenic vein thrombosis requiring , B12 deficiency. PAST SURGICAL HISTORY: The patient had multiple EGDs and colonoscopies. The last EGD was done at [facility] in 03/2017 that showed large esophageal varices and they were banded. No followup endoscopy after that. Previous colonoscopies were done for diverticulosis and for internal hemorrhoid. He had tonsillectomy and adenectomy in the past. MEDICATIONS: Ultram, Victoza, Propranolol, Lisinopril, Metformin, Lantus, Warfarin, Spironolactone, Omeprazole, Furosemide, B12, vitamin D, Ventolin inhaler. ALLERGIES: PROPOFOL. FAMILY HISTORY: Mother had poorly controlled diabetes mellitus. Father from unknown etiology. PSYCHOSOCIAL HISTORY: He lives with his and no history of tobacco use, no alcohol use for the last 35 years. PHYSICAL EXAMINATION: GENERAL: The patient was found to be comfortable, not in distress or in pain, hemodynamically stable with stable vital signs. VITAL SIGNS: Blood pressure 115/72, pulse of 100. Pulse oximeter 100%. HEAD AND NECK: Normocephalic, atraumatic. Pupils equal and reactive to light. NECK: Supple neck. No lymphadenopathy. No thyromegaly. CHEST: Clear to auscultation bilaterally. No crackles or wheezes. HEART: Regular rate and rhythm. No murmurs. ABDOMEN: Soft, nontender, slightly distended, but no hepatosplenomegaly. No palpable masses. EXTREMITIES: Normal pulses. No edema. NEUROLOGIC: Nonfocal. Cranial nerves 2-12 grossly intact. SKIN: No rashes. ASSESSMENT AND PLAN: A 62-year-old male patient who presented with the following problems: 1. Melanotic stools of several day's duration. 2. Anemia with a significant drop in H and H since admission. 3. History of esophageal varices, status post banding in 03/2017 with no followup endoscopy since. 4. History of AV malformation requiring APC coagulation in 2015. 5. Chronic anticoagulation for splenic vein thrombosis with warfarin with supratherapeutic level of INR. 6. Liver cirrhosis secondary to nonalcoholic steatohepatitis. 7. Multiple other comorbid conditions including diabetes mellitus. RECOMMENDATIONS: Will need a blood transfusion for the time being, serial hemoglobin and hematocrit. We need to correct the INR to be below 2 to proceed with upper endoscopy and possible banding in the morning. The procedure was explained to the patient including risks, benefits, and possible complications and he agreed to proceed with the procedure in a.m. Thank you for the consultation. MD NAE Iverson/APRIL , 09:47 AM , 10:41 AM
[2017-07-27] MEDS: PANTOPRAZOLE SODIUM 40 MG VIAL IV PUSH SCH (12:53)
[2017-07-27] MEDS ORDERED: TRAD5TAB PO (19:31)
[2017-07-28] VITALS: BP 139/85; PULSE 90; RESP 18; TEMP 97.9; O2SAT 96
[2017-07-28] MEDS: SODIUM CHLOR 0.9% 1000 ML INJ 1,000 ML IV SCH ×2 (03:20→12:52)
[2017-07-28] MEDS: traMADol HCL 50 MG TAB PO PRN ×2 (04:30→18:25)
--- NOTE | 2017-07-28 06:14 | HHI.PR ---
Subjective Remarks Well overnight. Still some fatigue with exertion but overall feels quite stable. He does note some pain in the right thigh associated with the ecchymosis in that area. He reports he actually feels better after he walks across the room and back. Thigh swelling is stable. Objective Vitals Vital Signs Date Time Temp Pulse Resp B/P (MAP) Pulse Ox O2 Delivery O2 Flow Rate FiO2 07/28/17 00:00 97.9 90 18 139/85 (103) 96 07/27/17 22:45 97.4 92 20 129/78 96 07/27/17 22:20 97.8 89 20 95/57 96 07/27/17 21:15 98.1 87 19 121/58 96 07/27/17 20:54 99.1 94 19 100/59 98 07/27/17 20:00 99.1 94 19 100/59 (73) 98 07/27/17 19:11 18 07/27/17 18:45 97.3 94 18 150/72 96 07/27/17 16:00 98.0 90 18 133/66 (88) 97 07/27/17 15:57 97.5 90 18 127/76 96 07/27/17 15:42 97.5 87 18 118/71 96 07/27/17 15:30 97.5 94 18 131/77 97 07/27/17 13:15 97.0 94 18 137/75 99 07/27/17 13:00 97.8 94 18 122/66 97 07/27/17 12:00 97.8 94 16 122/66 (84) 97 07/27/17 08:00 97.4 95 18 129/61 (83) 97 GENERAL: Sleeping, arouses to voice. No acute distress, alert and oriented. Pleasant. SKIN: Warm and dry. Right lateral and posterior thigh with areas of ecchymosis , left index finger with subungual hematoma-both stable in appearance from previous exam. HEAD: Normocephalic. EYES: No scleral icterus. No injection or drainage. NECK: Supple, trachea midline. No JVD or lymphadenopathy. CARDIOVASCULAR: Regular rate and rhythm without murmurs, gallops, or rubs. RESPIRATORY: Breath sounds equal bilaterally. No accessory muscle use. GASTROINTESTINAL: Abdomen soft, non-tender, mildly distended. Bowel sounds normal. MUSCULOSKELETAL: No cyanosis, or edema. Moves all extremities well. Right thigh ecchymosis as noted, no evidence of compartment syndrome. Tenderness to palpation over the right lateral thigh along the IT band. No definitive mass or hematoma. BACK: No CVA tenderness. Result Diagram: 07/27/17 0633 07/26/17 1200 Urinary Catheter: No Vascular Central Line Catheter: No A/P Problem List: (1) GIB (gastrointestinal bleeding) ICD Codes: K92.2 - Gastrointestinal hemorrhage, unspecified Status: Acute Plan: Recurrent issue in patient with known AVMs and varices. GI has seen the patient and is planning endoscopy. Monitor hemoglobin and vital signs. He has been given vitamin K which helped a bit with INR. He is also been transfused 2 unit FFP and 2 units PRBCs on 07/27/2017. Patient clinically appears stable (2) Symptomatic anemia ICD Codes: D64.9 - Anemia, unspecified Status: Acute Plan: We will continue to monitor. Vitals are stable. 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 Provided packed red cells and 2 unit FFP as noted. Current labs pending. (3) Coagulopathy ICD Codes: D68.9 - Coagulation defect, unspecified Status: Acute Plan: Likely in part iatrogenic as well as due to his liver insufficiency. Has been given vitamin K as above. INR improved somewhat but only slowly improving likely associated with liver dysfunction. Provide FFP. (4) Diabetes mellitus type 2, insulin dependent ICD Codes: E11.9 - Type 2 diabetes mellitus without complications; Z79.4 - exterminator (current) use of insulin Status: Chronic Plan: Continue insulin but will use lower basal dose. Use sliding scale insulin. Sugars have been improving with his intentional weight loss. (5) HTN (hypertension), benign ICD Codes: I10 - Essential (primary) hypertension Status: Chronic Plan: Good control. Continue medication as blood pressure will allow. 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 Continue outpatient management. Discharge Planning GI has seen patient. Hopefully discharge in next 1-2 days depending on his progress and stability of blood counts. Problem Qualifiers (1) GIB (gastrointestinal bleeding): Qualified Codes: K92.2 - Gastrointestinal hemorrhage, unspecified Mark Santos MD PhD Jul 28, 2017 06:14
[2017-07-28 07:10] LABS: AUTOMATED NEUTROPHIL # 1.1 TH/MM3 (1.8-7.7); BASOPHIL % 0.3 % (0.0-2.0); EOSINOPHIL % 1.7 % (0.0-4.0); HEMATOCRIT 22.6 % (39.0-51.0); HEMOGLOBIN 7.3 GM/DL (13.0-17.0); LYMPHOCYTE # 0.3 TH/MM3 (1.0-4.8); MEAN CELL VOLUME 83.7 FL (80.0-100.0); MEAN CORPUSCULAR HEMOGLOBIN 26.8 PG (27.0-34.0); MEAN PLATELET VOLUME 7.8 FL (7.0-11.0); MONO % 13.8 % (0.0-8.0); MONOCYTE # 0.2 TH/MM3 (0-0.9); NEUT % 64.2 % (16.0-70.0); PLATELET COUNT 36 TH/MM3 (150-450); RED BLOOD COUNT 2.71 MIL/MM3 (4.50-5.90); WHITE BLOOD COUNT 1.7 TH/MM3 (4.0-11.0)
[2017-07-28 07:19] LABS: INTERNATIONAL NORMALIZED RATIO 1.4 RATIO; PROTHROMBIN TIME - PATIENT 14.1 SEC (9.8-11.6)
[2017-07-28 07:50] VITALS: BP 114/74; PULSE 83; RESP 20; TEMP 97.1; O2SAT 97
[2017-07-28] MEDS: INSULIN ASPART SUPPLEMENTAL SCALE SQ SCH ×4 (08:00→20:59)
[2017-07-28] MEDS: VICTOZA 18 MG/3 ML SQ SCH (08:09)
[2017-07-28] MEDS: INSULIN DETEMIR 100 UNITS/ML VIAL SQ SCH ×2 (08:10→21:00)
[2017-07-28 09:01] LABS: LYMPHOCYTES 24 % (9-44); MONOCYTES 4 % (0-8); NEUTROPHIL # MANUAL DIFF 1.2 TH/MM3 (1.8-7.7); POLYS (SEG NEUTROPHILS) 70 % (16-70)
[2017-07-28 09:02] LABS: OVALOCYTES 1+ (NORMAL); TEARDROP RBCS 1+ (NORMAL)
--- NOTE | 2017-07-28 11:52 | EKG ---
Date Performed: 07/27/2017 Time Performed: 21:30:25 PTAGE: 62 years EKG: Sinus rhythm RIGHT BUNDLE BRANCH BLOCK ABNORMAL ECG Since the PREVIOUS TRACING , no significant change noted PREVIOUS TRACIN05/24/2015 19.29 DOCTOR: Britt Rayo Interpretating Date/Time 07/28/2017 11:50:04
[2017-07-28] MEDS ORDERED: GLUCAGON 1 MG/ML VIAL OTHER PRN (12:00)
[2017-07-28] MEDS ORDERED: DEXTROSE 50% IN WATER 50 ML VIAL(D50) IV PUSH PRN (12:00)
[2017-07-28 12:16] VITALS: BP 95/61; PULSE 84; RESP 20; TEMP 96.9; O2SAT 96
[2017-07-28] MEDS: PANTOPRAZOLE SODIUM 40 MG VIAL IV PUSH SCH (12:43)
[2017-07-28 15:00] VITALS: BP 122/68; PULSE 115; RESP 20; TEMP 97.8; O2SAT 96
[2017-07-28 15:08] VITALS: BP 114/74; PULSE 80; RESP 20; TEMP 97.1; O2SAT 97
[2017-07-28 20:00] VITALS: BP 131/68; PULSE 94; RESP 22; TEMP 98.3; O2SAT 100
[2017-07-29] VITALS: BP 128/75; PULSE 96; RESP 18; TEMP 98.1; O2SAT 99
[2017-07-29] MEDS: traMADol HCL 50 MG TAB PO PRN (00:58)
[2017-07-29] MEDS: SODIUM CHLOR 0.9% 1000 ML INJ 1,000 ML IV SCH (01:01)
--- NOTE | 2017-07-29 07:53 | HHI.PR ---
Subjective Remarks Overall feeling well. Still some fatigue with exertion but not worsened. Still complains of pain in the leg around the ecchymotic area. Desires discharge home today if possible. Reportedly was evaluated by hematology last night but I see no note on the chart as of yet. We will continue to hold warfarin for now. Objective Vitals Vital Signs Date Time Temp Pulse Resp B/P (MAP) Pulse Ox O2 Delivery O2 Flow Rate FiO2 07/29/17 00:00 98.1 96 18 128/75 (92) 99 07/28/17 20:00 98.3 94 22 131/68 (89) 100 07/28/17 17:45 98.1 92 20 138/80 (99) 93 Room Air 07/28/17 17:30 88 18 122/71 (88) 95 Nasal Cannula 2 07/28/17 17:15 85 18 125/72 (89) 94 Nasal Cannula 3 07/28/17 17:00 87 16 116/62 (80) 96 Simple Mask 3 07/28/17 16:45 98.3 82 16 118/65 (82) 91 Simple Mask 6 07/28/17 15:08 97.1 80 20 114/74 (87) 97 07/28/17 15:00 97.8 115 20 122/68 (86) 96 07/28/17 12:16 96.9 84 20 95/61 (72) 96 07/28/17 07:50 97.1 83 20 114/74 (87) 97 GENERAL: Walking to the restroom with IV pole in tow. No acute distress, alert and oriented. Pleasant. SKIN: Warm and dry. Right lateral and posterior thigh with areas of ecchymosis , left index finger with subungual hematoma-both stable in appearance from previous exams. HEAD: Normocephalic. EYES: No scleral icterus. No injection or drainage. NECK: Supple, trachea midline. No JVD or lymphadenopathy. CARDIOVASCULAR: Regular rate and rhythm without murmurs, gallops, or rubs. RESPIRATORY: Breath sounds equal bilaterally. No accessory muscle use. GASTROINTESTINAL: Abdomen soft, non-tender, mildly distended. Bowel sounds normal. MUSCULOSKELETAL: No cyanosis. 1+ edema bilateral distal lower extremities. Moves all extremities well. Right thigh ecchymosis as noted, no evidence of compartment syndrome. Tenderness to palpation over the right lateral thigh along the IT band. No definitive mass or hematoma. BACK: No CVA tenderness. Result Diagram: 07/29/17 0609 07/26/17 1200 Urinary Catheter: No Vascular Central Line Catheter: No A/P Problem List: (1) GIB (gastrointestinal bleeding) ICD Codes: K92.2 - Gastrointestinal hemorrhage, unspecified Status: Acute Plan: Recurrent issue in patient with known AVMs and varices. GI seeing the patient and upper endoscopy done 319 was reportedly negative for active bleeding. INR has been corrected with vitamin K and FFP (2) Symptomatic anemia ICD Codes: D64.9 - Anemia, unspecified Status: Acute Plan: We will continue to monitor. Vitals are stable. 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 Provided packed red cells and 2 unit FFP as noted. Current labs from 07/29/2017 likely in error. I discussed with lab and they will further investigate. Hematology was consulted yesterday regarding worsening pancytopenia. Reportedly he was seen by hematology last night but no note is in chart as of yet. (3) Coagulopathy ICD Codes: D68.9 - Coagulation defect, unspecified Status: Acute Plan: Likely in part iatrogenic as well as due to his liver insufficiency. Has been given vitamin K as above. INR corrected with FFP and vitamin K. (4) Diabetes mellitus type 2, insulin dependent ICD Codes: E11.9 - Type 2 diabetes mellitus without complications; Z79.4 - care home (current) use of insulin Status: Chronic Plan: Continue insulin but will use lower basal dose. Use sliding scale insulin. Sugars have been improving with his intentional weight loss. (5) HTN (hypertension), benign ICD Codes: I10 - Essential (primary) hypertension Status: Chronic Plan: Good control. Continue medication as blood pressure will allow. 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 Continue outpatient management. Discharge Planning Hopefully discharge home today or tomorrow. Patient is desirous of discharge home. We will await this a.m. labs and official report from hematology with her recommendations. Problem Qualifiers (1) GIB (gastrointestinal bleeding): Qualified Codes: K92.2 - Gastrointestinal hemorrhage, unspecified Mark Santos MD PhD Jul 29, 2017 07:53
[2017-07-29 08:00] VITALS: BP 155/70; PULSE 101; RESP 18; TEMP 98.2; O2SAT 98
[2017-07-29] MEDS: INSULIN DETEMIR 100 UNITS/ML VIAL SQ SCH (08:45)
--- NOTE | 2017-07-29 08:48 | MB ---
cc: Freedom Larios MD,Alpa aHq MD DATE OF CONSULT: 07/28/2017 CONSULT REQUESTED BY: Hospitalist service. PRIMARY CARE PHYSICIAN: Dr. lApa Alberto REASON FOR CONSULTATION: Pancytopenia in a patient with hepatic cirrhosis secondary to nonalcoholic steatohepatitis. CHIEF COMPLAINT: 1. Black tarry stools for approximately 1 week. 2. Large ecchymotic bruise involving the posterior aspect of the right thigh and right calf, with resultant swelling of the right lower extremity. The bleeding occurred in the setting of therapeutic anticoagulation with warfarin. The indication for anticoagulation was a history of splenic vein thrombosis as noted on imaging scans performed at the [facility] in [place]. The patient was recommended therapeutic anticoagulation reportedly by the office of his transplant surgeon at the [facility]. PREADMISSION WARFARIN DOSING: The patient had been on 6 mg p.o. twice daily as per the recommendations of his PCP. HISTORY OF PRESENT ILLNESS: Mr. Rivas is a 62-year-old man with a history of nonalcoholic steatohepatitis, he has a history of obesity and diabetes, which is poorly controlled. The patient has as a consequence to his hepatic cirrhosis, portal hypertension, with resultant splenomegaly associated with hypersplenism as well. He has significant esophageal varices, as well as numerous small bowel AVMs which have been in the past prone to bleeding. This man has required IV iron replacement therapy, as well as transfusions on multiple previous occasions. Mr. Rivas has been chronically cytopenic, with thrombocytopenia and leukopenia, both of which are suspected to be due to hypersplenism with splenic sequestration. He has been under the care of my associate, Dr. Tate, who in 2004 recommended a bone marrow biopsy, which revealed no evidence of primary hematologic disorder. This man's spleen was noted to be over 17 or 18 cm in 2015. Recent scans are not available for review. The patient presented to this facility after he developed melanotic stools, progressive fatigue and weakness, as well as a large ecchymotic bruise involving his right leg. He was admitted to this hospital and was noted to have a hemoglobin of less than 6.5 grams per deciliter on 07/27/2017. He was transfused multiple units of packed red blood cells. His INR was noted to be 4.3 at the time of admission, with a PTT of 53.7. He underwent an EGD earlier today. He did have his warfarin effect reversed with vitamin K. The hematology service has been asked to see him to make further recommendations relating to his pancytopenia. PAST MEDICAL HISTORY: 1. Nonalcoholic steatohepatitis. 2. Morbid obesity. 3. Diabetes. 4. Previous history of tobaccoism, he denies ever having been a heavy drinker. 5. History of AV malformations. 6. Recurrent gastrointestinal bleeding. 7. Iron deficiency anemia secondary to GI bleeding. 8. ALTHEA. 9. Portal hypertension and portal gastropathy. 10. Reported history of vitamin B12 deficiency. PAST SURGICAL HISTORY: 1. Multiple EGDs. 2. Left ankle ORIF. 3. Multiple distal esophageal banding procedures. FAMILY HISTORY: Mother had diabetes. Father in the 1980s, cause not known. SOCIAL HISTORY: He lives at home with his . They have been 35 years. The patient currently works as a diesel mechanic farm, working on heavy trucks. He reports formerly being a smoker as well. He quit 20 years ago. He was a heavy drinker, but has not drank in 35 years. ALLERGIES: CEPHALEXIN AND PROPOFOL, BOTH OF WHICH HE THINKS ARE MORE LIKELY INTOLERANCES. CURRENT INPATIENT MEDICATIONS: 1. Normal saline 100 mL per hour. 2. Insulin Levemir 20 units subcutaneous every 12 hours. 3. Pantoprazole 40 mg IV every 24 hours. 4. Tramadol 50 mg every 6 hours as needed for pain. REVIEW OF SYSTEMS: A 13-point review of systems are obtained, the following the pertinent positives and negatives: CONSTITUTIONAL: The patient reports fatigue, loss of appetite, he denies fevers, chills or night sweats. HEENT: Denies headaches, blurry vision, he denies difficulty swallowing. RESPIRATORY: Reports having had exertional dyspnea. Denies cough or hemoptysis. Denies pleuritic chest pain. CARDIOVASCULAR: Denies anginal-like chest pain, PND or orthopnea. GASTROINTESTINAL: Reports melanotic stools, denies hematemesis, reports abdominal distention, he denies jaundice. UG: No complaints. MUSCULOSKELETAL: Right leg bruising, swelling, pain and difficulty ambulating due to the pain. CENTRAL NERVOUS SYSTEM: Denies any focal sensory, motor deficits. No other complaints reported. PHYSICAL EXAMINATION: VITAL SIGNS: Temperature 98.1 degrees Fahrenheit, heart rate 92 beats per minute, respiratory rate 20, blood pressure is 138/80, O2 saturations are 93% on 2 liters nasal cannula. GENERAL APPEARANCE: Mr. Rivas is a middle-aged male, he appears to be tall and heavyset, he is sitting up in bed, not acutely distressed. His is at bedside. HEENT: Head is atraumatic, normocephalic. Conjunctivae are mildly pale, sclerae are mildly icteric. Oral exam, no pharyngeal erythema. NECK: No palpable cervical or supraclavicular lymphadenopathy. RESPIRATORY: Good air movement bilaterally on posterior examination, without any added breath sounds. CARDIOVASCULAR: Regular rate and rhythm, S1, S2. No obvious murmurs, rubs or gallops. ABDOMEN: Obese, protuberant belly, round. No obvious tenderness. The examination is limited by his body habitus and I could not palpate organ enlargement. There is no apparent free fluid. LOWER EXTREMITIES: No pretibial edema on the left side. Right side, there appears to be edema of the calf and thigh. There is a large ecchymotic bruise going from the proximal right thigh posteriorly to the distal right calf. CENTRAL NERVOUS SYSTEM: No focal sensory or motor deficits. SKIN: Please note above for large ecchymotic bruise over his right thigh posteriorly. ASSESSMENT: Mr. Rivas is a 62-year-old man with a diagnosis of nonalcoholic steatohepatitis (LASSITER), consequent to this, he has portal hypertension with resultant esophageal varices, splenomegaly due to splenic congestion. 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 He is chronically thrombocytopenic with platelet counts ranging between 40 and 50,000. Likely secondary to his hepatic cirrhosis and portal hypertension, he has developed a splenic vein thrombosis. The patient was referred to the [facility] for transplant evaluation and he was ultimately assessed to have reasonably well preserved hepatic function and was not a candidate at the time for a liver transplant. The patient, however, was noted by the transplant surgeon to have a splenic vein thrombosis and about 6 weeks ago, the patient was recommended initiation of anticoagulation with warfarin. Per the patient's , the patient had undergone sequential dose increases of the warfarin up to 12 mg a day, split into twice-daily dosing as coordinated by his primary care physician, Dr. Alpa Alberto. While on this dosing, the patient developed black melanotic stools, which lasted about a week. He also developed large ecchymotic bruise involving his right lower extremity. He presented to the hospital for further workup and management. At the time of presentation, his INR was 4.3. The warfarin effect was reversed. He underwent esophagogastroduodenoscopy earlier today. The final report of which is pending. His platelet count has been noted to be approximately 60-36,000. The hematology service has been asked to see him for further workup and management of his pancytopenia. RECOMMENDATIONS: ANEMIA: Related to acute gastrointestinal bleeding secondary to upper gastrointestinal blood loss and likely also due to the large ecchymotic bruise involving his right leg and thigh. I would advise refraining from additional anticoagulation at this point, given this man's high risk for GI bleeding. In the past, he has had multiple GI bleeds secondary to esophageal varices and also AVMs in the upper GI tract. When considering his previous history of GI bleeding and chronic thrombocytopenia, this man is at extremely high risk for bleeding while on anticoagulation. When coupled with at best scant and equivocal data to suggest the benefit of therapeutic anticoagulation for portal vein thromboses and splenic vein thromboses in the management of patients with hepatic cirrhosis, I would be very hesitant to recommend rechallenging this man with any form of anticoagulation. As far as his leukopenia and thrombocytopenia are concerned, I would suspect these are related to his splenic sequestration. The thrombocytopenia is likely exacerbated due to the ongoing consumption secondary to the bleeding. I do not recommend any specific therapeutic interventions at this time or other investigations. I would recommend continuing supportive care. Mr. Rivas may be discharged with close outpatient followup with his outpatient residential door unit installer, Dr. Tate, as well as his primary care physician. MD CECELIA Jay , 07:09 PM , 11:31 PM [facility]
[2017-07-29 08:56] LABS: BASOPHIL % 0.4 % (0.0-2.0); EOSINOPHIL % 1.5 % (0.0-4.0); HEMATOCRIT 21.9 % (39.0-51.0); HEMOGLOBIN 7.2 GM/DL (13.0-17.0); LYMPH % 14.7 % (9.0-44.0); LYMPHOCYTE # 0.2 TH/MM3 (1.0-4.8); MEAN CELL VOLUME 83.7 FL (80.0-100.0); MEAN CORPUSCULAR HEMOGLOBIN 27.6 PG (27.0-34.0); MEAN PLATELET VOLUME 8.3 FL (7.0-11.0); MONO % 14.7 % (0.0-8.0); MONOCYTE # 0.2 TH/MM3 (0-0.9); NEUT % 68.7 % (16.0-70.0); PLATELET COUNT 35 TH/MM3 (150-450); RED BLOOD COUNT 2.62 MIL/MM3 (4.50-5.90); WHITE BLOOD COUNT 1.4 TH/MM3 (4.0-11.0)
[2017-07-29] MEDS: VICTOZA 18 MG/3 ML SQ SCH (08:57)
[2017-07-29] MEDS: INSULIN ASPART SUPPLEMENTAL SCALE SQ SCH (08:57)
[2017-07-29] MEDS ORDERED: LANTUS2P SQ (09:08)
[2017-07-29] MEDS ORDERED: PROT40TA PO (09:09)
--- NOTE | 2017-07-29 09:17 | HHI.DS ---
Discharge Summary Admission Date Jul 27, 2017 at 08:15 Discharge Date: Jul 29, 2017 Admitting Diagnosis GI bleed. Anemia. Hypercoagulation. (1) GIB (gastrointestinal bleeding) Diagnosis: Principal ICD Codes: K92.2 - Gastrointestinal hemorrhage, unspecified Status: Acute (2) Symptomatic anemia Diagnosis: Principal ICD Codes: D64.9 - Anemia, unspecified Status: Acute (3) Coagulopathy Diagnosis: Principal ICD Codes: D68.9 - Coagulation defect, unspecified Status: Acute (4) Diabetes mellitus type 2, insulin dependent Diagnosis: Secondary ICD Codes: E11.9 - Type 2 diabetes mellitus without complications; Z79.4 - snf (current) use of insulin Status: Chronic (5) HTN (hypertension), benign Diagnosis: Secondary ICD Codes: I10 - Essential (primary) hypertension Status: Chronic (6) 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 Brief History 62-year-old male with history of AVMs, cirrhosis, esophageal varices, diabetes with prior GI bleeds that required transfusions presents to ER for follow-up on visit from yesterday which revealed supratherapeutic INR and hemoglobin around 8.5. Patient reports that he has had outpatient IV iron supplementation by his local dress fitter due to his chronic anemia but over the last 10 days or so has noted dark tarry stools which is unusual for him. He notes that he has had these before and has required EGD with treatment of variceals and AVMs. Patient has been follow-up by Dr. Tate locally and [facility] and hematology as well. Patient states that IV iron supplement elevated blood sugar in the past. He has avoided nonsteroidals and has not drank any alcohol in 35 years. He uses Tylenol arthritis for his joint pains but no more than 3 pills per day. Patient denies abdominal pain. Patient denies any fever chills. Patient denies any headache or nausea vomiting. Patient denies any chest pain or shortness of breath. Patient denies any dizziness. Denies any new medications and reports that he has been taking his anticoagulant and other meds as directed. It is noted that he has lost 15 pounds over the last month or so intentionally by changing his dietary intake. His outpatient INR on July 02 was 1.9 and prior to that was 2.2 on June 23. GI was contacted from the ER per discussion with the ER provider and they requested the patient be admitted for at least observation given that he was still having dark tarry stools, supratherapeutic INR and a significant history of GI bleeds as well as chronic thrombocytopenia. CBC/BMP: 07/29/17 0815 07/26/17 1200 Significant Findings Laboratory Tests Test 07/26/17 12:00 07/27/17 06:33 07/28/17 06:30 07/29/17 06:09 White Blood Count 3.7 TH/MM3 (4.0-11.0) 2.2 TH/MM3 (4.0-11.0) 1.7 TH/MM3 (4.0-11.0) Red Blood Count 3.07 MIL/MM3 (4.50-5.90) 2.34 MIL/MM3 (4.50-5.90) 2.71 MIL/MM3 (4.50-5.90) Hemoglobin 8.5 GM/DL (13.0-17.0) 6.4 GM/DL (13.0-17.0) 7.3 GM/DL (13.0-17.0) Hematocrit 25.1 % (39.0-51.0) 19.2 % (39.0-51.0) 22.6 % (39.0-51.0) Platelet Count 60 TH/MM3 (150-450) 49 TH/MM3 (150-450) 36 TH/MM3 (150-450) Neutrophils (%) (Auto) 80.6 % (16.0-70.0) Lymphocytes # (Auto) 0.4 TH/MM3 (1.0-4.8) 0.3 TH/MM3 (1.0-4.8) Prothrombin Time 43.5 SEC (9.8-11.6) 31.4 SEC (9.8-11.6) 14.1 SEC (9.8-11.6) Activated Partial Thromboplast Time 53.7 SEC (24.3-30.1) Blood Urea Nitrogen 30 MG/DL (7-18) Random Glucose 242 MG/DL (74-106) Calcium Level 8.2 MG/DL (8.5-10.1) Estimat Glomerular Filtration Rate 82 ML/MIN (>89) Mean Corpuscular Hemoglobin 26.8 PG (27.0-34.0) Monocytes (%) (Auto) 13.8 % (0.0-8.0) Neutrophils # (Auto) 1.1 TH/MM3 (1.8-7.7) Neutrophils # (Manual) 1.2 TH/MM3 (1.8-7.7) Platelet Estimate LOW (NORMAL) Tear Drop Cells 1+ (NORMAL) Ovalocytes 1+ (NORMAL) Test 07/29/17 08:15 White Blood Count 1.4 TH/MM3 (4.0-11.0) Red Blood Count 2.62 MIL/MM3 (4.50-5.90) Hemoglobin 7.2 GM/DL (13.0-17.0) Hematocrit 21.9 % (39.0-51.0) Platelet Count 35 TH/MM3 (150-450) Monocytes (%) (Auto) 14.7 % (0.0-8.0) Neutrophils # (Auto) 1.0 TH/MM3 (1.8-7.7) Lymphocytes # (Auto) 0.2 TH/MM3 (1.0-4.8) Hospital Course Pt admitted for symptomatic anemia and iatrogenic coagulopathy. He was given vit K and FFP to reverse INR which was 4.3 at admission. EGD revealed portal gastropathy and varices, but no active bleeding. Pt had no more melanotic stools after admission and vitals remained stable. He did have large area of ecchymosis on right lateral and post thigh which stabilized. Additionally, he was transfused 2 U PRBCs due to Hb elizabeth of 6.4. Hb stable around 7.3 at d/c. He was evaluated by hematology re: pancytopenia and it was advised that pt no undertake more anticoagulation re: small splenic thrombus. Will d/c home with close outpt f/u from PCP and hematology. He will avoid NSAIDs/anticoagulants and monitor for signs of bleeding. Re: his DM, his sugars were somewhat low when fasting and overall have been better controlled since he lost 15 lbs over last month or so with diet changes. Will decrease his home Lantus to 30 units bid from 60 units bid and he will follow closely. Pt Condition on Discharge: Stable Discharge Disposition: Discharge Home Discharge Instructions DIET: Follow Instructions for: Diabetic Diet Activities you can perform: Weight Bearing as Jonh Other Activity Instructions: avoid high impact activities intially. Advance as tolerated. Follow up Referrals: Gastroenterology Oncology/Hematology PCP Follow-up New Orders: CBC WITH DIFF - 2-3 Days New Medications: Pantoprazole (Protonix) 40 Mg Tab 40 MG PO DAILY for Reflux, #30 TAB 0 Refills Changed Medications: Insulin Glargine Inj (Lantus Inj) 100 Unit/Ml Inj 30 UNITS SQ BID for dm for 31 Days, BOTTLE (Changed from: 60 UNITS) Continued Medications: Linagliptin (Tradjenta) 5 Mg Tab 5 MG PO DAILY for Blood Sugar Management, #30 TAB 0 Refills Liraglutide Inj (Victoza Inj) 18 Mg/3 Ml Pen 1.8 MG SQ DAILY, #1 PEN 0 Refills Lisinopril (Lisinopril) 2.5 Mg Tab 5 MG PO DAILY, #30 TAB 0 Refills Metformin (Metformin) 850 Mg Tab 850 MG PO TIDPC for Blood Sugar Management, TAB 0 Refills Propranolol (Propranolol) 20 Mg Tab 20 MG PO DAILY, #60 TAB 0 Refills Tramadol (Ultram) 50 Mg Tab 50 MG PO Q6H PRN for PAIN, #20 TAB 0 Refills Discontinued Medications: Warfarin (Warfarin) 10 Mg Tab 12 MG PO DAILY for Blood Clot Prevention, #30 TAB 0 Refills Mark Santos MD PhD Jul 29, 2017 09:17
[2017-07-29 09:54] LABS: BANDS 1 % (0-6); BASOPHILS 1 % (0-2); LYMPHOCYTES 11 % (9-44); MONOCYTES 10 % (0-8); NEUTROPHIL # MANUAL DIFF 1.1 TH/MM3 (1.8-7.7); POLYS (SEG NEUTROPHILS) 75 % (16-70)
[2017-07-29 10:02] LABS: PROTHROMBIN TIME - PATIENT 10.1 SEC (9.8-11.6)
[2017-07-29 10:04] LABS: INTERNATIONAL NORMALIZED RATIO 1.1 RATIO; PROTHROMBIN TIME - PATIENT 11.4 SEC (9.8-11.6)
== END 2017-07-29 11:30 | disposition home or self-care (01) | DRG 813 ==
LOC: PHEFT 11:33 → PHEDA 13:35 → PH3A 14:45 → OBSVTOIN 07-27 08:15
PROVIDERS: ADMIT Family Medicine; ATTEND Family Medicine
PROC: 30233K1 Transfusion of Nonautologous Frozen Plasma into Peripheral Vein, Percutaneous Approach (ICD-10-PCS; principal; 2017-07-27)
PROC: 30233N1 Transfusion of Nonautologous Red Blood Cells into Peripheral Vein, Percutaneous Approach (ICD-10-PCS; 2017-07-27)
PROC: 0DJ08ZZ Inspection of Upper Intestinal Tract, Via Natural or Artificial Opening Endoscopic (ICD-10-PCS; 2017-07-28)
DX: D68.32 Hemorrhagic disorder due to extrinsic circulating anticoagulants (principal); D61.818 Other pancytopenia; K76.6 Portal hypertension; E66.01 Morbid (severe) obesity due to excess calories; D62 Acute posthemorrhagic anemia; D73.5 Infarction of spleen; K92.1 Melena; E11.9 Type 2 diabetes mellitus without complications; I10 Essential (primary) hypertension; D73.1 Hypersplenism; K74.60 Unspecified cirrhosis of liver; T45.515A Adverse effect of anticoagulants, initial encounter; K21.9 Gastro-esophageal reflux disease without esophagitis; G47.33 Obstructive sleep apnea (adult) (pediatric); K31.9 Disease of stomach and duodenum, unspecified; E53.8 Deficiency of other specified B group vitamins; K75.81 Nonalcoholic steatohepatitis (NASH); M19.90 Unspecified osteoarthritis, unspecified site; Z68.34 Body mass index [BMI] 34.0-34.9, adult; Z79.01 Long term (current) use of anticoagulants; Z79.4 Long term (current) use of insulin; Z87.891 Personal history of nicotine dependence; Z88.1 Allergy status to other antibiotic agents
CPT/HCPCS: 36430; 80048; 82948; 85007; 85025; 85027; 85610; 85730; 86850; 86900; 86901; 86920; 86927; 93005; 96361; 96372; 96374; C9113; G0378; J1815; J3430; J7030; P9016; P9017